=== PATIENT | female | born 1995 | race Caucasian/White ===

== ENCOUNTER → 2022-12-30 | Outpatient (CLI) | payer OTHER ==
[~2022-12-30] MED LIST: ISOVUE-300 61% 100ML VIAL As Ordered ONE; LIDOCAINE 1% MDV 20ML VIAL As Ordered ONE; methylPREDNISolone SUSP 40MG/ML 1ML VIAL (DEPO MEDROL) As Ordered ONE
== END ==
LOC: M RAD 14:05
PROVIDERS: ATTEND Physician Assistant Surgical
DX: M16.12 Unilateral primary osteoarthritis, left hip (principal)
CPT/HCPCS: 20610; 77002; J1030; Q9967

== ENCOUNTER → 2023-02-28 | Outpatient (CLI) | payer OTHER | LOC: M SLEEP 20:00 | PROVIDERS: ATTEND Nurse Practitioner Family | DX: Z01.818 Encounter for other preprocedural examination (principal) ==

== ENCOUNTER → 2023-05-06 | Outpatient (REF) | payer OTHER ==
[2023-05-06 18:04] LABS: HEMATOCRIT 42.6 % (36.0-47.0); HEMOGLOBIN 13.9 g/dl (12.0-15.5)
[2023-05-06 18:27] LABS: BLOOD UREA NITROGEN 12 MG/DL (9-23); CARBON DIOXIDE LEVEL 28 MMOL/L (20-31); CHLORIDE LEVEL 103 MMOL/L (98-107); CREATININE FOR GFR 0.69 MG/DL (0.55-1.30); GLOMERULAR FILTRATION RATE > 60.0 (>60); GLUCOSE, FASTING 76 MG/DL (60-100); POTASSIUM SERUM 4.7 MMOL/L (3.5-5.1); SODIUM LEVEL 138 MMOL/L (136-145)
== END ==
LOC: M PLALAB 16:57
PROVIDERS: ATTEND Orthopaedic Surgery
DX: Z01.818 Encounter for other preprocedural examination (principal)

== ENCOUNTER → 2023-05-07 | Outpatient (REF) | payer OTHER | LOC: M LAB REF 15:26 | PROVIDERS: ATTEND Orthopaedic Surgery | DX: M67.432 Ganglion, left wrist (principal) ==

== ENCOUNTER 2024-12-16 06:15 | Day surgery (SDC) | payer OTHER ==
[~2024-12-16] VITALS: Ht 154.9 cm; Wt 79.1 kg
[~2024-12-16 06:15] MED LIST changes: +BIOT1CAP PO; +CALC-218 PO; -ISOVUE-300 61% 100ML VIAL As Ordered ONE; -LIDOCAINE 1% MDV 20ML VIAL As Ordered ONE; +MULTTAB61 PO; +SERT50TA29 PO; -methylPREDNISolone SUSP 40MG/ML 1ML VIAL (DEPO MEDROL) As Ordered ONE
[2024-12-16 07:03] LABS: BASO # 0.1 10^3/uL (0.0-0.2); BASO % 0.7 % (0.0-1.0); EOS # 0.2 10^3/uL (0.0-0.5); EOS % 2.2 % (0.0-3.0); LYMPH # 2.2 10^3/uL (1.5-5.0); LYMPH % 21.9 % (24.0-44.0); MONO # 0.9 10^3/uL (0.0-0.8); MONO % 9.3 % (2.0-8.0); NEUTROPHILS # 6.5 10^3/uL (1.5-8.5); NEUTROPHILS % 65.6 % (36.0-66.0); PLATELET COUNT, AUTOMATED 371 10^3/uL (150-450)
[2024-12-16] MEDS ORDERED: LR 1,000 ML IV SCH (07:10)
[2024-12-16] MEDS: DOXYCYCLINE HYCLATE 100 MG in DEXTROSE 5% (D5W) MINI-BAG PLU 100 ML IV SCH (07:37)
[2024-12-16] MEDS: LIDOCAINE 1% MDV 20 ML VIAL As Ordered ONE (07:40)
[2024-12-16] MEDS: METHYLERGONOVINE MALEATE 0.2 MG/ML 1 ML VIAL As Ordered ONE (07:54)
[2024-12-16] MEDS: TRANEXAMIC ACID 100 MG/ML 10ML VIAL As Ordered ONE (07:56)
[2024-12-16] MEDS: SILVER NITRATE APPLICATOR (1 = QTY 10) As Ordered ONE (07:58)
[2024-12-16] MEDS: ONDANSETRON 4MG 2ML VIAL IV PRN (08:20)
[2024-12-16] MEDS: KETOROLAC 30 MG/ML 1 ML VIAL IV ONE (08:33)
[2024-12-16 09:35] VITALS: BP 115/56; TEMP 96.9; O2SAT 97
== END 2024-12-16 11:15 | disposition home or self-care (01) ==
LOC: M SDC 06:15
PROVIDERS: ATTEND Obstetrics & Gynecology
DX: O02.1 Missed abortion (principal); F41.9 Anxiety disorder, unspecified; Z88.0 Allergy status to penicillin; Z88.1 Allergy status to other antibiotic agents; Z91.041 Radiographic dye allergy status; Z90.49 Acquired absence of other specified parts of digestive tract; Z98.84 Bariatric surgery status